=== PATIENT | female | born 1940 | race Caucasian/White ===

== ENCOUNTER 2017-05-06 09:14 | Inpatient (IN) | payer MEDICARE, OTHER ==
[~2017-05-06] VITALS: Ht 157.5 cm; Wt 72.1 kg
--- NOTE | ~2017-05-06 | DS ---
PATIENT'S NAME: LESLIE MARTINEZ [facility] AGE: 77 Y [address] ROOM: [id number] [place] [id number] [place] [facility] [place]: 05/06/2017 Discharge Summary DISCHARGE DATE: 05/25/2017 FAMILY PHYSICIAN: Ariel Pineda MD ATTENDING PHYSICIAN: Asif Mckee DISCHARGE DIAGNOSES: 1. Acute encephalopathy. 2. End-stage dementia with aggressive behaviors. 3. Gait instability secondary to medication side effects. 4. Chronic constipation. 5. Depression. 6. Left cheek abrasion. 7. Osteoarthritis. HOSPITAL COURSE: Please refer to admitting history and physical as dictated by Dr. Mckee. Briefly, the patient was admitted to [facility] with multiple mechanical falls and advanced dementia. Her falls were felt to be secondary to lorazepam side effect. She was placed on one-to-one observation. The delirium protocol was used. She was hydrated with normal saline. Her Ativan was discontinued. Wound Care did follow the patient for a left cheek abrasion. Bactroban was used until healed. Psychiatry was consulted for her agitated and psychotic behaviors. Ativan 1 mg 3 times daily and Haldol 2 mg p.r.n. were used. Her home Neurontin was discontinued. Urine culture showed no growth to date. Laboratory data was stable. She did gradually improve. She did have noted times of restlessness and agitation. Her chronic constipation was controlled with MiraLAX, milk of magnesia, and as needed Dulcolax suppository. Due to her advanced dementia, she did need care management assistance with working on fpc facility placement. Her acute encephalopathy secondary to medication side effects had resolved. On 05/25/2017, the patient was stable. [facility] was able to take the patient for placement, therefore, she was transferred on 05/25/2017. LABORATORY DATA: Sodium remained stable, potassium 3.6 to 4.1, BUN 12 to 22, creatinine 0.7 to 0.9, and magnesium 2.4, and GFR remained greater than 60. Hemoglobin 11.7 to 13.5, hematocrit 35.9 to 40.8, and platelets 191,000. UA; blood 10; wbc's rare; epithelial 0-2, and bacteria negative. WBC clumps few. Urine culture negative. IMAGING STUDIES: Radiology Reports: A CT scan of the head showed stable dilation of the ventricles, periventricular small-vessel ischemic changes. No acute cortical ischemia or hemorrhage. CT scan of the face showed no evidence of fracture or dislocation. Mucosal thickening. CT scan done of the cervical spine showed multi-level degenerative changes without fracture or dislocation. PATIENT'S NAME: LESLIE MARTINEZ [facility] AGE: 77 Y [address] ROOM: [place] [address] [place] [facility] [place]: 05/06/2017 Discharge Summary DISCHARGE DATE: 05/25/2017 FAMILY PHYSICIAN: Ariel Pineda MD ATTENDING PHYSICIAN: Asif Mckee X-ray of the right shoulder showed degenerative changes at the AC joint with no evidence of fracture or dislocation. DISCHARGE INSTRUCTIONS: 1. The patient will be discharged to [facility]. 2. Dr. Pineda to follow. 3. Diet: Regular. 4. Weightbearing as tolerated with fall precautions. 5. Rehabilitation potential is poor. 6. Discharge potential is poor. DISCHARGE MEDICATIONS: 1. Zyprexa 2.5 mg p.o. daily. 2. MiraLAX 17 g p.o. daily. 3. Senna 8.6 mg p.o. twice daily p.r.n. constipation. 4. Seroquel 75 mg p.o. t.i.d. 5. Tylenol 650 mg p.o. every 4 hours as needed for pain. 6. Maalox 30 mL p.o. every 4 hours as needed. 7. Dulcolax suppository 10 mg rectally daily p.r.n. 8. Ativan 0.5 mg p.o. q.8 hours as needed for dementia. 9. Milk of magnesia 30 mL p.o. daily p.r.n. constipation. 10. Aloe [place] apply to left heel 3 times daily for skin integrity. 11. Haldol 1 mg q.8 hours p.r.n., aggressive behaviors. 12. Ativan 0.5 mg 1 tablet p.o. q.4 hours p.r.n. aggressive behaviors. Thank you for allowing us to participate in the care of this patient. She has been hospitalized at [facility]. EBONY DARDEN APRN FOR MD SHEREEN ACHARYA/farhatl /[id number] d: 05/26/17 1332 t: 05/29/17 1653, DISCHARGE SUMMARY
--- NOTE | ~2017-05-06 | CON ---
PATIENT'S NAME: LESLIE MARTINEZ [facility] AGE: 77 Y [address] ROOM: [place] [address] [place] [facility] [place]: 05/06/2017 Consultation DISCHARGE DATE: FAMILY PHYSICIAN: AMADOU SOTELO MD ATTENDING PHYSICIAN: SEAN JENSEN DATE OF CONSULTATION: 05/08/2017 REFERRING PHYSICIAN: Mary Stiles M.D. REASON FOR CONSULT: Left facial cheek abrasion. HISTORY OF PRESENT ILLNESS: This is a 77-year-old female patient who is admitted to [facility] with advanced dementia and frequent falls. She currently resides at [facility]. Prior to admission, the patient has fallen multiple times. On admission she was found to have a left facial cheek abrasion. Per previous records, it is not clear how long the patient was lying on the ground. The patient is unable to report a history due to advanced dementia. PAST MEDICAL HISTORY: Advanced dementia and osteoarthritis. PAST SURGICAL HISTORY: D and C. FAMILY HISTORY: None listed. SOCIAL HISTORY: The patient currently resides at [facility]. She is a nonsmoker. ALLERGIES: PENICILLIN AND SULFAMETHOXAZOLE. CURRENT MEDICATIONS: Please refer to the medication administration record. REVIEW OF SYSTEMS: Unable to complete due to patient's advanced dementia. PHYSICAL EXAMINATION: PATIENT'S NAME: LESLIE MARTINEZ [facility] AGE: 77 Y [address] ROOM: [place] [address] [place] [facility] [place]: 05/06/2017 Consultation DISCHARGE DATE: FAMILY PHYSICIAN: AMADOU SOTELO MD ATTENDING PHYSICIAN: SEAN JENSEN VITAL SIGNS: Temperature 97.7, pulse 80, respirations 16, blood pressure 121/79, pulse oximetry 95% on room air. Height 5 feet 2 inches and weight 72.1 kg. GENERAL: The patient is alert. She is agitated. She did try to bite me as I was cleansing her face. HEENT: Obvious left facial cheek abrasion. Please see skin assessment for further details. NEUROLOGICAL: The patient does appear alert but unable to assess. She does not follow my commands. EXTREMITIES: Deferred. SKIN: To the patient's left facial cheek, she has an abrasion that is moist pink with centralized scabbing. I gently cleansed as the patient would allow. The patient was also noted to be picking at the site at times. Entire area measures 5.0 cm width x 5.0 cm length x 0.1 cm depth. Small bloody exudate noted. Periwound is erythemic. Area is not raised or hot to touch. LABORATORY DATA: Please see chart. ASSESSMENT AND PLAN: This is a 77-year-old female patient who was admitted to [facility] with advanced dementia and falls. 1. Left facial cheek abrasion secondary to fall. The patient is already on Bactroban. Increase to t.i.d. application. Erythema appears to be consistent with inflammatory response and not cellulitis or erysipelas. The patient would not allow further skin assessment. Previous records note that she does have redness to her left breast; however, the patient would not let me visualize and was swatting and trying to bite me when I did. I would like to thank Dr. Stiles for this consult. CHINEDU HAWK APRN FOR MD ONELIA ESCOBEDO/claus /[id number] d: 05/08/17 1404 t: 05/30/17 1544, CONSULTATION REPORT
--- NOTE | ~2017-05-06 | ER ---
PATIENT'S NAME: LESLIE MARTINEZ [facility] AGE: 77 Y [address] ROOM: [address] [address] [place] [facility] [place] DATE: 05/06/2017 ER/Outpatient Report DISCHARGE DATE: FAMILY PHYSICIAN: PHYSICIAN, UNKNOWN ATTENDING PHYSICIAN: SEAN JENSEN Time of Arrival: 0914 hours. Time of Evaluation: 0931 hours. IDENTIFICATION: A 77-year-old female. CHIEF COMPLAINT: Fall. HISTORY OF PRESENT ILLNESS: The patient is a 77-year-old female from [facility], who presents after a fall. The patient had an unwitnessed fall. One month ago, the patient moved from a fci in [place] to [facility]. Since that time, she has been aggressive for the last 2 weeks. She was taken to [place] last week to have her medications adjusted and brought home on . Yesterday, she fell 4 times, and this morning was found on the floor between the bed and the nightstand, unknown the time of the fall. The patient was awake, confused and aggressive, punching and hitting and biting at staff, but this behavior apparently is the patient's baseline according to the staff. There was some question of whether or not she had right shoulder pain. She was transferred here by ambulance. I could obtain no history from the patient, she was nonverbal for me. PAST MEDICAL HISTORY: Reviewed from records and with her daughters. ALLERGIES: RECORDS REFLECT THAT THE PATIENT HAS AN ALLERGY TO BACTRIM AND PENICILLIN. CURRENT MEDICATIONS: 1. Seroquel 75 mg t.i.d. 2. Aloe [place] to left hand t.i.d. 3. Zyprexa 2.5 mg daily. 4. Neurontin 200 mg t.i.d. 5. Tylenol 325 mg q.4 hours p.r.n. 6. Maalox 30 mL q.4 hours p.r.n. 7. Ativan 0.5 mg q.2 hours as needed for anxiety, and she did receive 3 doses yesterday as well as the day before. 8. Sennosides 1 tablet twice daily. PATIENT'S NAME: LESLIE MARTINEZ [facility] AGE: 77 Y [address] ROOM: [address] [place], [place] [address] [place] [facility] [place] DATE: 05/06/2017 ER/Outpatient Report DISCHARGE DATE: FAMILY PHYSICIAN: PHYSICIAN, UNKNOWN ATTENDING PHYSICIAN: SEAN JENSEN 9. Dulcolax suppository 10 mg p.r.n. 10. Milk of magnesia p.r.n. MEDICAL PROBLEMS: Dementia, anxiety, depression, and agitation. REVIEW OF SYSTEMS: Unable to obtain from the patient due to her dementia. Family had no additional review of systems. Their concern is the frequent falls and that she needs additional care. PHYSICAL EXAMINATION: VITAL SIGNS: Height 5 feet 3 inches and weight 71.4 kg. Blood pressure 138/91, pulse 86, respirations 18, temperature 98.4, and saturations 94% on room air. GENERAL: A 77-year-old female, in no acute distress. HEENT: Head: Normocephalic. She has erythema and abrasion over the left side of her face with some swelling of the eyelids. Eyes: Pupils equal and reactive to light and accommodation. Extraocular movements intact. Nose: Mucosa pink. No lesions. Mouth: No lesions. Pharynx benign. NECK: Supple. No lymphadenopathy. No apparent tenderness to palpation. No palpable deformities. LUNGS: Clear to auscultation. Breath sounds are equal. HEART: Regular rate and rhythm. No murmur, rub, or gallop. ABDOMEN: Bowel sounds present. Soft, nondistended, nontender. No tenderness to pelvic rock. EXTREMITIES: Lower extremities: No bony abnormalities. She moves all extremities. Upper extremities: She moves all extremities. NEURO: The patient will open her eyes to command. She does not follow any directions. She is not oriented. She has no focal deficit, however. SKIN: She has the erythema and abrasion on her cheek. She has erythema over her left anterior chest and breast. LABORATORY DATA AND X-RAYS: Lactate 2.0. Hemoglobin 12.4; hematocrit 38.2; platelets 217; white count 7.5, normal differential. Procalcitonin less than 0.05. Sodium 142, potassium 4.3, chloride 109, CO2 of 26, BUN 15, creatinine 0.8. Blood sugar 102. AST 63, ALT 19. Head CT, stable dilatation of the ventricles per Radiology. Facial bone CT negative. Cervical spine CT, multilevel degenerative changes. IMPRESSION: 1. Left facial abrasion. Wound care. 2. Dementia with increasing fall risk and frequent falls. 3. Aggressive behavior. PATIENT'S NAME: LESLIE MARTINEZ [facility] AGE: 77 Y [address] ROOM: [address] [address] [place] [facility] [place] DATE: 05/06/2017 ER/Outpatient Report DISCHARGE DATE: FAMILY PHYSICIAN: PHYSICIAN, UNKNOWN ATTENDING PHYSICIAN: SEAN JENSEN 4. Left chest wall abrasion/contusion. 5. Stable dilatation of the ventricles per head CT. Consider normal pressure hydrocephalus. PLAN: The patient will be admitted per Dr. Jensen for further evaluation, medication adjustment and to get Care Management involved for any possible placement needs. Family understands and agrees, and all questions have been answered. The patient remained in stable condition throughout her stay here in the emergency room. RG BOOTH MD CAR/modl /[id number] d: 05/06/17 1613 t: 05/12/172018, OUTPATIENT REPORT
--- NOTE | ~2017-05-06 | HP ---
PATIENT'S NAME: LESLIE MARTINEZ [facility] AGE: 77 Y [address] ROOM: [address] [place] [id number] [place] [facility] [place]: [place]/2017 History & Physical DISCHARGE DATE: FAMILY PHYSICIAN: PHYSICIAN, UNKNOWN ATTENDING PHYSICIAN: SEAN JENSEN DATE OF SERVICE: CHIEF COMPLAINT: Multiple mechanical falls after being given Ativan. HISTORY OF PRESENT ILLNESS: This is a 77-year-old, memory unit female, resident at [facility] who has advanced dementia. At baseline, patient can get restless and agitated, is easily forgetful, and also disoriented most of the time. The story is that because of her behavior of being aggressive from dementia, about 2 weeks ago, the patient was taken to [facility] for evaluation. Over there, blood work, everything was normal according to the patient's daughter and patient was discharged with Ativan 0.5 mg every 2 hours p.r.n. for agitation. Before that she was only taking 0.5 mg Ativan q.2 hours p.r.n. for agitation, but only up to three doses in 24 hours. Last Sunday when she was back at the [facility], the staff over there started giving her the Ativan 0.5 mg q.2 hours p.r.n. as ordered, and she has gotten 3 doses on this Sunday, which was 2 days ago and also three doses again yesterday, which was on Sunday. Yesterday, the patient has fallen multiple times, and today, the patient fell again when she was found lying on the ground, but alert. She was found to have a skin laceration on her left side of the face and erythema on her left cheek, and also left breast. It is not clear how long has the patient been on the ground, but the patient was found conscious. The patient denies hitting her head and also denies loss of consciousness. Because of the multiple falls after Ativan was given, patient was brought here for further evaluation. The patient's daughter also want the patient to be placed into a jail and does not want patient to go back to the [facility] given that they believe patient will require higher level of care due to her advanced dementia and at a very high fall risk. REVIEW OF SYSTEMS: As mentioned in the History of Present Illness. The patient denies any symptoms that I asked her on my examination. All other system were reviewed with the patient and were negative except for those mentioned in the History of Present Illness. The patient denies any pain. PAST MEDICAL HISTORY: Advanced dementia. PATIENT'S NAME: LESLIE MARTINEZ [facility] AGE: 77 Y [address] ROOM: [place] [address] [place] [facility] [place]: 05[place]2017 History & Physical DISCHARGE DATE: FAMILY PHYSICIAN: PHYSICIAN, UNKNOWN ATTENDING PHYSICIAN: SAEN JENSEN ALLERGIES: NO KNOWN DRUG ALLERGIES. HOME MEDICATIONS: Currently has been reconciled. SOCIAL HISTORY: The patient was never a smoker or drinker or drug user. PAST SURGICAL HISTORY: Status post lower back surgery. FAMILY HISTORY: Both parents from old age. The patient's daughter does not remember how her grandparents . PHYSICAL EXAMINATION: VITAL SIGNS: At the time of my dictation, temperature 97.6, blood pressure 136/84, respirations 14, saturation 98% on room air, and heart rate 77. GENERAL APPEARANCE: Alert, but disoriented to time, people, and place at the moment. The patient is not in distress, but she does try to get out of bed once in a while. HEENT: Pupils equally round and reactive to light. Extraocular muscles intact. Anicteric sclerae. Nasal turbinates are normal bilaterally. Moist oral mucosa. NECK: No JVD. CARDIOVASCULAR: Regular rate and rhythm. Normal S1 and S2. No murmurs, no rubs, no gallops. RESPIRATORY: Clear to auscultation. ABDOMEN: Soft, nontender, nondistended, bowel sounds present, no mass. EXTREMITIES: No edema in upper or lower extremities. SKIN: She has a skin laceration on the left side of the face and also erythema on the left side of the face, and also on the left breast. The erythema is nontender, is not hot, and also is not raised. NEUROLOGICAL: Cannot perform a full neurological exam given that patient does not really follow all the commands due to her dementia. However, no slurred speech. No facial droop. LABORATORY DATA: Lactic acid 2.0. White blood cells 7.5, hemoglobin 12.4, hematocrit 38.2, and platelets 217,000. Glucose 102, BUN 15, creatinine 0.8, sodium 142, potassium 4.3, chloride 109, CO2 of 26, calcium 8.8, total protein 7.3, albumin 3.6, AST 63, ALT 19, alkaline phosphatase 78, total bilirubin 0.5, anion gap 11.3, and GFR more than 60. Procalcitonin is less than 0.05. PATIENT'S NAME: LESLIE MARTINEZ [facility] AGE: 77 Y [address] ROOM: [address] [address] [place] [facility] [place]: 05/06/2017 History & Physical DISCHARGE DATE: FAMILY PHYSICIAN: PHYSICIAN, UNKNOWN ATTENDING PHYSICIAN: SEAN JENSEN IMAGING STUDIES: 1. CT of the cervical spine without contrast on admission showed multilevel degenerative changes with no evidence of a fracture or dislocation. 2. CT of the facial bone without contrast on admission showed no evidence of a fracture or dislocation. Mucosal thickening involving the right sphenoid sinus. 3. CT of the brain without contrast on admission shows stable dilatation of the ventricles raising the question of normal pressure hydrocephalus. This is chronic and unchanged. Periventricular small-vessel ischemic changes. No acute cortical ischemia or hemorrhage. 4. X-ray of the right shoulder showed degenerative changes at the acromioclavicular joint with no evidence of a fracture or dislocation. ASSESSMENT AND PLAN: 1. Regarding her multiple falls secondary to lorazepam use: We will avoid lorazepam given that this medication can cause very high fall risk in elderly population. For her dementia with psychotic features, I will use the antipsychotics, use the Seroquel p.r.n., Zyprexa prn, and Haldol prn if needed as part of delirium orders. The patient will be on fall precaution and aspiration precaution. If necessary, the patient's daughter gave me permission to use soft restraints on both wrists in case the patient becomes a danger to herself or tried to harm others or to herself. I have already spoken to the daughter and both daughters agreed and wanted us to use restraints if it is necessary for her safety and others. The patient's daughter, her name is Tabitha and she wants the patient to be placed into a jail after she is discharged from here. They do not want to take the patient back to the [facility] given that they believe patient will require higher level of care due to her high risk of falls and advanced dementia. For this reason, I will consult test case developer for placement. Further plan will depend on clinical course. 2. Regarding her skin laceration on the left cheek: It is nontender and is not raised. I do not think this is erysipelas. The erythema likely is from lying on the ground for unknown amount of time, therefore, I will check her CPK to make sure she does not have any evidence of rhabdomyolysis. Further plan will depend on clinical course. 3. Regarding her code status: She is DNR/DNI. 4. The legal guardian is her daughter. Her name is Tabitha. Phone number is [phone]. 5. Further plan will depend on clinical course. PATIENT'S NAME: LESLIE MARTINEZ [facility] AGE: 77 Y [address] ROOM: [place] [address] [place] [facility] [place]: 05/06/2017 History & Physical DISCHARGE DATE: FAMILY PHYSICIAN: PHYSICIAN, UNKNOWN ATTENDING PHYSICIAN: SEAN JENSEN MD CC/modl /[id number] D: 458 T: 822 HISTORY & PHYSICAL
--- NOTE | ~2017-05-06 | CON ---
PATIENT'S NAME: AMAIRANI MARTINEZ [facility] AGE: 77 Y [address] ROOM: [place] [address] LOCATION: [facility] ADMIT DATE: 05/06/2017 Consultation DISCHARGE DATE: FAMILY PHYSICIAN: AMADOU SOTELO MD ATTENDING PHYSICIAN: SEAN JENSEN DATE OF CONSULTATION: 05/08/2017 IDENTIFYING DATA: Amairani is a 77-year-old, , she is an [place] female, who is a resident in assisted living facility in the dementia unit here in [facility], admitted for increasing falls. Consultation requested for increased aggression. The patient seen one-to-one in her room today. Information obtained from the nursing staff as well and from the collateral records. More than 50% of time spent in counseling and coordination of care. HISTORY OF PRESENT ILLNESS: As per the information available, the patient was having increasing falls, having increasing agitation, being more aggressive, and at that time she was transferred over to the medical floor here at [facility]. Since the patient has been here, she has been very confused and disorganized, hitting, kicking, scratching, and being extremely rude and mean towards the staff. She has to be on one-to-one, so that she does not walk out or does not fall. The patient absolutely makes no sense in her conversations and has difficulty understanding the questions and most of her answers are not related to the questions you ask her. No reports of any suicidal or homicidal ideations. No reports of any struggles with moods. No reports of any problem with anxiety. PAST PSYCHIATRIC HISTORY: The patient has been diagnosed with dementia over the last 4 to 5 years, has been gradually declining, and is in assisted living facility now. MEDICAL AND SURGICAL HISTORY: Overall is relatively healthy. No chronic health issues. Concerns about her having UTI though. Recent falls as well. DRUG AND ALCOHOL HISTORY: None relevant. FAMILY HISTORY: No psychiatric history available from the family. PERSONAL AND SOCIAL HISTORY: The patient is . She is living in an assisted living facility here in PATIENT'S NAME: AMAIRANI MARTINEZ [facility] AGE: 77 Y [address] ROOM: [place] [address] LOCATION: [facility] ADMIT DATE: 05/06/2017 Consultation DISCHARGE DATE: FAMILY PHYSICIAN: AMADOU SOTELO MD ATTENDING PHYSICIAN: SEAN JENSEN. MENTAL STATUS EXAM: The patient is alert and awake. She is not oriented to place or person. She is not cooperative with fair hygiene. Fair grooming. Appropriately dressed. Good eye contact. Psychomotor retardation. No rigidity or tremor. Affect is of decreased range, normal intensity, it is related and appropriate. Could not describe the mood. Thought process is disorganized. No suicidal or homicidal ideation. No psychosis. Poor insight. Poor judgment. Struggling with memory and concentration. ASSESSMENT: 1. Neurocognitive disorder with behavioral disturbance. 2. Rule out delirium secondary to possible urinary tract infection, recent falls. PLAN: At this time, I would recommend that we use some Ativan 1 mg 3 times a day IV to help with aggression and agitation and to address the symptoms, which might be related to her dementia and possibly delirium as well. She is on one-to- one that will cover the risk of any falls. It can be switched over to oral dose once she is able to take oral medication. Also start Haldol 1 mg q.6 hours IV p.r.n. for psychosis and we can reinitiate the home medications once she is able to take them orally. Use behavioral intervention for the safety of the patient and the staff. Follow up will be as needed by the Psychiatry Service. Thanks for this referral. MD RAH ROBLERO/claus /[id number] d: 05/08/17 2130 t: 05/09/17 1349, CONSULTATION REPORT
[2017-05-06 10:14] LABS: BASOPHIL % 0.4 %; EOSINOPHIL # 0.1 K/uL (0.0-0.5); EOSINOPHIL % 0.9 %; HEMATOCRIT 38.2 % (33.0-46.0); HEMOGLOBIN 12.4 g/dL (10.0-15.0); IMMATURE GRANULOCYTE % 0.3 %; LYMPHOCYTE # 1.2 K/uL (0.8-4.0); LYMPHOCYTE % 16.3 %; MCH 30.9 pg (27.0-34.0); MCHC 32.5 gm/dL (32.0-36.5); MCV 95.3 fl (83.0-98.0); MONOCYTE # 0.6 K/uL (0.0-1.0); MONOCYTE % 8.1 %; MPV 10.9 fl (9.4-12.4); NEUTROPHIL # (ANC) 5.6 K/uL (1.8-7.8); NRBC % 0 /100WBC (0-0.00); PLATELET COUNT 217 K/uL (150-450); RBC 4.01 M/uL (3.50-5.50); RDW-CV 13.4 % (11.9-14.6); WBC 7.5 K/uL (4.0-11.0)
[2017-05-06 10:37] LABS: ALBUMIN 3.6 gm/dL (3.5-5.0); ALK PHOS 78 IU/L (33-138); ALT 19 IU/L (12-78); ANION GAP 11.3 (10.0-19.0); AST 63 IU/L (10-40); BLOOD UREA NITROGEN 15 mg/dL (6-24); CALCIUM 8.8 mg/dL (8.5-10.5); CHLORIDE 109 mMol/L (96-110); CO2 26 mMol/L (22-32); CREATININE 0.8 mg/dL (0.5-1.1); ESTIMATED GFR (MDRD EQUATION) > 60; POTASSIUM 4.3 mMol/L (3.7-5.1); SODIUM 142 mMol/L (135-145); TOTAL BILIRUBIN 0.5 mg/dL (0.0-1.5); TOTAL PROTEIN 7.3 g/dL (6.0-8.4)
--- NOTE | 2017-05-06 18:30 | NUR ---
ADMISSION NOTE/SHIFT SUMMARY Significant Event: Patient admitted through emergency room from [facility]. Patient recently admitted there for advanced dementia. Patient's daughters accompanied patient to E.R. but once patient sent to floor, daughters went home. Patient just prior to coming up to floor agitated that daughters left and confused--trying to get off the cart and then once transferred to bed was trying to get out of bed. Staff trying to explain need to stay in bed but unsuccessful. Patient trying to hit, spit, bite, scratch, and kick. Behavior not improving despite attempts to redirect patient, have staff sit with patient, family unavailable and patient not able to be safe when up as she fell several times yesterday and once during the night. Dr. Mckee called and restraint order obtained at 1330 along with order for haldol 5 mg IM times one now for agitation. Restraints applied at 1345 and haldol given at 1405. Patient did calm down eventually after restraints and haldol but can still get agitated at times. Patient also trying to take out her IV. IV is currently noted to patient's right hand and covered with coban to protect it. Patient did eat some lunch but when she was done patient then spit last bite of mashed potatoes out at nurse. Patient has been incontinent times one and did have a BM after arrival to floor. Patient is also a 1:1 observation status. Follow up: Continue to monitor.
[2017-05-06] MEDS ORDERED: SEROQUEL25 MG PO (20:08)
[2017-05-06] MEDS ORDERED: ZYPREXA2.5 MG PO (20:10)
[2017-05-06] MEDS ORDERED: NEURONTIN100 MG PO (20:10)
[2017-05-06] MEDS ORDERED: TYLENOL325 MG PO (20:13)
[2017-05-06] MEDS ORDERED: MAALOX LIQ UNIT30 ML PO (20:14)
[2017-05-06] MEDS ORDERED: ATIVAN 0.5MG0.5 MG PO (20:16)
[2017-05-06] MEDS ORDERED: MILK OF MA400 MG/5 M PO (20:17)
[2017-05-06] MEDS ORDERED: DULCOLAX10 MG R (20:17)
[2017-05-06] MEDS ORDERED: SENOKOT8.6 MG PO (20:18)
[2017-05-06] MEDS ORDERED: ALOE VESTA141 GM TOP (20:25)
[2017-05-06] MEDS ORDERED: ALOE VESTA TOP (20:28)
--- NOTE | 2017-05-07 08:40 | NUR ---
Pt. oriented to self. Advanced dementia with psychotic features. Restraints removed at 0100. Pt. given prior to shift change and has been resting all shift. Inc. x1. Restarted IV in L) forearm with fluids at 100ml. RA. VSS. 1:1 supervision. Regular diet. 1 assist. Home med list needs addressed.
--- NOTE | 2017-05-07 11:30 | NUR ---
Called patient's daughter/guardian, Nandini #[phone]. She reports patient has only been at [facility] a week or two. She went there and then to [facility] for med adjustments. Was at [facility] for 2 weeks and just got back to [place] on 05/03. Patient was originally at the [facility] but they moved her to [place] to be closer to her . Patient has also been at [facility] at some point but go out unattended. Will need a locked unit. Only one in [place] is [facility]. 2nd choice is [facility]. 1200 Lyla from [facility] called. They can not accept back, needs higher level of care. I requested medical records from [facility]. She faxed me the records.
--- NOTE | 2017-05-07 14:53 | NUR ---
A-SCREENED D/T (+)MST; NPFE DEFERRED ADVANCED DEMENTIA. RESTRAINTS REMOVED EARLY THIS AM. NO HT OR WT OBTAINED; CALLED RN AND THEY WILL GET BOTH. ESTIMATED HT AT 62 IN. LABS: NA 142, K+ 4.3, GLU 102, BUN 15, INTEGRATION ARCHITECT 0.8, ALB 3.6 MEDS: SEROQUEL, ZYPREXA, HALDOL DIET RX: REGULAR. PO INTAKE BITES-25% NUTR. NEEDS FIGURED BASED ON EST HT AND IBW: 9491-6011 KCALS (25-30 KCALS/KG IBW) AND 50-55 GM PROTEIN (1.0-1.1 GM/KG IBW). D-AT NUTRITION RISK W/INADEQUATE ORAL INTAKE R/T ALTERED MENTAL STATUS AEB INTAKE RECORDS, AND CHART REVIEW I-START ENSURE ENLIVE BID TO PROVIDE ADDITIONAL NUTRIENTS M/E-GOAL: PO INTAKE >/=50% BY DISCHARGE 1)F/U WITH WT AND HT IN 1 DAY; ADJUST EST NUTR NEEDS IF NEEDED 2)WILL ASSIST NEEDED
--- NOTE | 2017-05-07 17:34 | NUR ---
Significant Event: PT ALERT, DISORIENTED TO TIME, PLACE, PERSONS. REMAINS IN 1:1 OBSERVATION. VERY IMPULSIVE, ULTRA HIGH FALL RISK. IV WENT BAD AND HAD TO START A NEW IV TO R FA. PT WAS VERY COMBATIVE FOR REMOVAL AND RESTART. WILL HIT, KICK, AND BITE. IS VERY CONTENT TO JUST AMBULATE IN HALLS WITH CATERING TRUCK DRIVER. DAUGHTER HAS CALLED TO CHECK IN ON A COUPLE TIMES THIS SHIFT. CM WILL START LOOKING FOR PLACEMENT. PT HAS TAKEN IN SMALL AMOUNTS OF PO, SEEMS TO DO BETTER WITH SOFTER FOODS. DNR/DNI ORDER OBTAINED. Follow up: 1:1, CONTINUE TO MONITOR, NEED UA
--- NOTE | 2017-05-08 04:34 | NUR ---
Pt. oriented to self. Advanced dementia. RA. VSS. 1:1 sitter. Regular diet - soft foods. Helped feed with meals. IV in R) arm with fluids. Pills crushed in applesauce. Incontinence. Slept well through shift.
[2017-05-08 05:03] LABS: BASOPHIL % 0.4 %; EOSINOPHIL # 0.2 K/uL (0.0-0.5); EOSINOPHIL % 4.6 %; HEMATOCRIT 35.9 % (33.0-46.0); HEMOGLOBIN 11.7 g/dL (10.0-15.0); IMMATURE GRANULOCYTE % 0.2 %; LYMPHOCYTE # 1.5 K/uL (0.8-4.0); LYMPHOCYTE % 32.7 %; MCH 30.9 pg (27.0-34.0); MCHC 32.6 gm/dL (32.0-36.5); MCV 94.7 fl (83.0-98.0); MONOCYTE # 0.5 K/uL (0.0-1.0); MONOCYTE % 10.4 %; MPV 10.5 fl (9.4-12.4); NEUTROPHIL # (ANC) 2.3 K/uL (1.8-7.8); NEUTROPHIL % 51.7 %; NRBC % 0 /100WBC (0-0.00); RBC 3.79 M/uL (3.50-5.50); RDW-CV 13.4 % (11.9-14.6); WBC 4.5 K/uL (4.0-11.0)
[2017-05-08 05:11] LABS: PLATELET COUNT 172 K/uL (150-450)
[2017-05-08 05:32] LABS: ANION GAP 8.6 (10.0-19.0); BLOOD UREA NITROGEN 12 mg/dL (6-24); CALCIUM 8.4 mg/dL (8.5-10.5); CHLORIDE 112 mMol/L (96-110); CO2 25 mMol/L (22-32); CREATININE 0.7 mg/dL (0.5-1.1); ESTIMATED GFR (MDRD EQUATION) > 60; MAGNESIUM 2.4 mg/dL (1.8-2.6); PHOSPHORUS 2.3 mg/dL (2.5-4.9); POTASSIUM 3.6 mMol/L (3.7-5.1); SODIUM 142 mMol/L (135-145)
[2017-05-08 05:44] LABS: CPK 1483 IU/L (21-215)
[2017-05-08 14:05] LABS: BILIRUBIN URINE NEGATIVE (NEGATIVE); BLOOD URINE 50 /UL (NEGATIVE); COLOR URINE STRAW (YELLOW); GLUCOSE URINE NEGATIVE (NEGATIVE); KETONE URINE NEGATIVE (NEGATIVE); LEUKOCYTES URINE 500 /UL (NEGATIVE); NITRITE URINE NEGATIVE (NEGATIVE); PROTEIN URINE NEGATIVE (NEGATIVE); TURBIDITY URINE 2+ (CLEAR); UROBILINOGEN URINE NORMAL (NORMAL)
[2017-05-08 14:13] LABS: BACTERIA URINE MANY (NEGATIVE); WBC CLUMPS URINE FEW (NEGATIVE); WBC URINE 20-50 #/HPF (NEGATIVE)
--- NOTE | 2017-05-08 16:11 | NUR ---
A - NUTRITION FOLLOW-UP IMPULSIVE, PSY CONSULT TODAY 05/08. ADVANCED DEMENTIA. OBTAINED PT'S HT AND WT. HT: 62 INCHES, WT: 158# LABS: K+ 3.6, ALB 3, PO4 2.3. NEW MEDS: ZYPREXA. PT IS ON SEROQUEL, HALDOL DIET: FINGER FOOD SOFT 05/08 W/ ENSURE ENLIVE BID. INTAKE SIPS/BITES-25%. NEEDS HELP W/ MEALS. PER RN, PT WILL DRINK ENSURE ENLIVE IF NOT STARTING TO BITE RN. EST NEEDS: 5251-1757 KCAL, 50-60 GRAMS PROTEIN (1-1.2 GRAMS/KG IBW), FLUID NEEDS: 1ML/KCAL D - INADEQUATE ORAL INTAKE RELATED TO ALTERED MENTAL STATUS EVIDENCED BY PO SIPS/BITES-25%. I - CONTINUE W/ ENSURE ENLIVE BID. M/E - GOAL: PT WILL BE ABLE TO TOLERATE >50% OF MEALS AND AT LEAST ONE ORAL SUPPLEMENT PER DAY IN 3-5 DAYS.
--- NOTE | 2017-05-08 17:17 | NUR ---
Significant Event: PT ALERT AND DISORIENTED. VSS ON RA, AFEBRILE. PT PULLED IV OUT, NEW RESTARTED TO L FA. VERY AGITATED THIS AM, HITTING AT STAFF. PRN HALDOL 1MG GAVE, PT RESTED AFTER THAT. REFUSED AM PO MEDS, TRIED TO GIVE IN APPLESAUCE AND SPIT OUT. PT BECAME VERY AGITATED AGAIN THIS AFTERNOON, VERY ABUSIVE TO CLIENT TECHNOLOGIES ANALYST IN ROOM. ORDER OBTAINED FOR IM HALDOL 5MG X1, PT CALMED SOME AFTER. STRAIGHT CATH FOR UA AND NEW IV PLACED AT THAT TIME. PT WAS STILL AGITATED AND HITTING/KICKING ON REASSESSMENT, SO 1MG HALDOL GAVE AGAIN PER PRN ORDERS. PSYCH CONSULT OBTAINED AND EVAL COMPLETED. STARTED ON PO/IV ATIVAN, PRN HALDOL. REMAINS IN 1:1 OBSERVATION. CLIENT TECHNOLOGIES ANALYST'S ROTATED THROUGH SHIFT. SHOWERED THIS AFTERNOON. WAS UP TO VISIT THIS AM BRIEFLY. DAUGHTER CALLED TO CHECK IN. CM WORKING ON PLACEMENT. Follow up: 1:1 OBSERVATION, NEW MEDICATIONS
--- NOTE | 2017-05-09 04:51 | NUR ---
Pt. oriented to self. RA. VSS. Slept all of shift. Took HS pills with a milkshake. Remains in 1:1 with sitter. IV in R) arm with fluids. Incontinent x1.
--- NOTE | 2017-05-09 11:50 | NUR ---
Called back patients Guardian/Daughter Nandini Christopher borrero a message: Not made any referrals yet due to continued behaviors which need to be stabilized before patient will be ready to go. Also can not require 1:1 supervision.
--- NOTE | 2017-05-09 16:51 | NUR ---
Significant Event: PT RESTING WELL THIS AM, TOOK MEDS CRUSHED IN A "MILK SHAKE" OF ENSURE AND ICE CREAM. MORE ALERT THIS AFTERNOON, AMBULATING IN HALLS WITH BATCH ROLLER OPERATOR, VERY RESTLESS AND CHANGES POSITIONS OFTEN. COOPERATIVE FOR THE MOST PART, OCCASSIONALLY BECOMES IRRITATED WHEN UNABLE TO DO TASK SHE WANTS TO BUT HAS BEEN EASY TO REDIRECT, NOT PHYSICALLY AGGRESSIVE TOWARD STAFF THIS SHIFT. 2 LRG INC VOIDS, IVF CONTINUE TO RUN. PT ATE MINIMAL FOR BREAKFAST, BUT ATE 50% FOR LUNCH. WAS UP TO VISIT THIS AM AND WAS AGITATED WITH BATCH ROLLER OPERATOR IN ROOM THAT SHE WAS NOT SERVING HIM. HE LEFT ANGRY. DAUGHTER, ALON, CALLED TO CHECK IN. Follow up: 1:1 SITTER, MONITOR AGITATION, CM WORKING ON PLACEMENT
--- NOTE | 2017-05-10 04:45 | NUR ---
Significant Event: PATIENT REMAINS 1 : 1 SITTER. RESTLESS BEGINNING OF SHIFT, AMBULATED IN HALLWAY WITH GAITBELT, NURSE AND FAMILY MENBER ASSISTED. GAIT UNSTEADY. AMBULATED TO BR WITH GAITBELT AND 2 ASSIST, VOIDED AND HAD A LARGE BM. WAS INCONTINENCE OF STOOL AND URINE PRIOR GOING TO BR. SAT UP IN RECLINER CHAIR 45 MINUTES. RETURN TO BED AT 2030. TAKEN HS MEDS SEROQUOL 75MG AND ATIVAN 0.5MG PO MEDS CRUSHED AND GIVEN WITH A MILKSHAKE. IV NORMAL SALINE 9% INFUSING IN LEFT ANTERIOR FOREARM AT 70ML/HR. TUBING CHANGED DONE. OCCASIONALLY IRRITATED BUT REDIRECTS. LEFT CHEEK ABRASION, SMALL ABRASION,REDNESS TO LEFT FOREHEAD HOLINESS AREA. PATIENT SLEPT ALL SHIFT. BEEN REPOSITIONED. Follow up:
--- NOTE | 2017-05-10 19:30 | NUR ---
Significant Event: Alert to self only. 1:1 sitter. Room air. SBP 154, 169. HR 70, 80. Up with 2 assist, unsteady. Takes medication crushed in an ice cream and ensure malt. Incontinent of urine and bowel. Follow up:
[2017-05-10 23:03] LABS: BILIRUBIN URINE NEGATIVE (NEGATIVE); BLOOD URINE 10 /UL (NEGATIVE); COLOR URINE YELLOW (YELLOW); GLUCOSE URINE NEGATIVE (NEGATIVE); KETONE URINE NEGATIVE (NEGATIVE); LEUKOCYTES URINE NEGATIVE /UL (NEGATIVE); NITRITE URINE NEGATIVE (NEGATIVE); PROTEIN URINE NEGATIVE (NEGATIVE); TURBIDITY URINE CLEAR (CLEAR); UROBILINOGEN URINE NORMAL (NORMAL)
[2017-05-10 23:11] LABS: BACTERIA URINE NEGATIVE (NEGATIVE); EPITHELIAL URINE 0-2 #/HPF (NEGATIVE); WBC URINE RARE #/HPF (NEGATIVE)
--- NOTE | 2017-05-11 04:11 | NUR ---
Shift Summary: Patient is forgetful and impulsive. Does hit and kick if aggitated. Incontinent of urine and charting states of BM also. No C/O of pain. Ambulates with 1-2 assist. Waiting for placement.
--- NOTE | 2017-05-11 10:30 | NUR ---
A - NUTRITION F/U. DISORIENTED X 3. NO LABS. PT W/ 1+ BLE EDEMA. DIET: FINGER FOOD SOFT DIET, ASSIST W/ MEALS. ENSURE BID. INTAKE VARIES 0-50%. AWAITING PLACEMENT. D - INADEQUATE ORAL INTAKE R/T DECREASED APPETITE AEB INTAKE RECORD. I - GOAL: 50% OR BETTER INTAKE BY DISMISSAL. M/E - CONT TO ENCOURAGE ORAL INTAKE. F/U IN 2-4 DAYS.
--- NOTE | 2017-05-11 16:45 | NUR ---
Significant Event:Is alert but disoriented x3.IV in Lt.arm.Abrasion/bruise Lt.cheek.Abrasion Lt.forehead.starting to scab Lt.cheek one.Is amb w/1 assist.Remains being a 1:1.Has slept at intervals.Takes meds crushed & put in ensure or ice cream or something. Follow up:
--- NOTE | 2017-05-12 06:06 | NUR ---
SIGNIFICANT EVENT: Pt alert early in shift, slept well since HS. Disoriented x3. Incontinent of Lg urine x2, no BM this shift. PIV to L) arm infusing. 1PA to ambulate. Regular diet. 1:1 sitter. Has been cooperative with cares this shift.
--- NOTE | 2017-05-12 15:47 | NUR ---
Significant Event: Pt denies pain. Sleepy this am. Confused and combative at times. Continues on 1:1 supervision for pt safety. Up with 1-2 assist. Inc of urine. Poor appetite. Saline lock'd IV. Picks at scab on left cheek. Follow up:
--- NOTE | 2017-05-13 05:26 | NUR ---
Significant Event: ALERT NOT ORIENTATED BED REST DNR. TWO PERSON ASSIST TO DO CARES. PATIENT IS EASILY AGITATED AND BECOMES COMBATIVE. VSS WNL ON RA. PILLS ARE CRUSHED AND GIVEN IN APPLE SAUCE OR FLUIDS. IV L ARM SL. 1:1. Follow up:
--- NOTE | 2017-05-13 16:12 | NUR ---
Significant Event: Pt denies pain. Continues on 1:1 supervision for pt safety. Up with 1-2 assist. Inc urine. Confused but more cooperative today then yesterday. Poor appetite. Did put pt on a mechanical soft diet as she does not have her dentures here. Follow up:
[2017-05-14 04:52] LABS: BASOPHIL % 0.6 %; EOSINOPHIL # 0.3 K/uL (0.0-0.5); HEMATOCRIT 40.8 % (33.0-46.0); HEMOGLOBIN 13.5 g/dL (10.0-15.0); IMMATURE GRANULOCYTE % 0.2 %; LYMPHOCYTE # 1.5 K/uL (0.8-4.0); LYMPHOCYTE % 27.3 %; MCH 30.7 pg (27.0-34.0); MCHC 33.1 gm/dL (32.0-36.5); MCV 92.7 fl (83.0-98.0); MONOCYTE # 0.6 K/uL (0.0-1.0); MONOCYTE % 10.6 %; MPV 10.9 fl (9.4-12.4); NEUTROPHIL % 56.3 %; NRBC % 0 /100WBC (0-0.00); PLATELET COUNT 191 K/uL (150-450); RDW-CV 13.3 % (11.9-14.6); WBC 5.4 K/uL (4.0-11.0)
[2017-05-14 05:10] LABS: ALBUMIN 3.3 gm/dL (3.5-5.0); ANION GAP 10.2 (10.0-19.0); CALCIUM 9.2 mg/dL (8.5-10.5); CREATININE 0.9 mg/dL (0.5-1.1); MAGNESIUM 2.4 mg/dL (1.8-2.6); PHOSPHORUS 3.3 mg/dL (2.5-4.9); POTASSIUM 4.2 mMol/L (3.7-5.1)
--- NOTE | 2017-05-14 07:34 | NUR ---
Significant Event: ALERT, DISORIENTED. CONTINUES 1:1 OBSERVATION FOR SAFETY. UP WITH 1-2 ASSIST. CAN BE AGITATED AT TIMES BUT FAIRLY COOPERATIVE WITH STAFF. TOOK MEDS CRUSHED IN ENSURE. INCONTINENT OF URINE. IV SALINE LOCKED. SLEPT WELL THROUGH NIGHT. Follow up:
--- NOTE | 2017-05-14 11:10 | NUR ---
Spoke to FRANNIE Gregory following patient and she feels patient is close to being ready for discharge. Staff is staring to wean her from 1:1 with starting 15 mins checks on her. I placed a call to [facility] at 1100 and left Shanique a message to see if they have any beds available in their memory care unit. Patient will need to be in a locked unit per RACHEL Gomez's notes. Will notifiy Sanna Cook CM following today of referral made to [facility].
--- NOTE | 2017-05-14 12:27 | NUR ---
A-NUTRITION F/U 1:1 FOR SAFETY. TAKES PILLS CRUSHED IN ENSURE OR ICE CREAM. NO BM SINCE 05/10; MIRALAX ORDERED. WAITING FOR PLACEMENT LABS REVIEWED: ALB 3.3 MEDS: ATIVAN DIET RX: MECHANICAL SOFT DIET W/ENSURE BID. PO INTAKE DECLINED SINCE LAST F/U TO SIPS/BITES-25%. EST NUTR NEEDS: 8747-4188 KCALS AND 50-60 GM PROTEIN D-AT NUTRITION RISK W/INADEQUATE ORAL INTAKE R/T ALTERED MENTAL STATUS AEB ADVANCED DEMENTIA DX, INTAKE RECORDS, CHART REVIEW, NEED FOR 1:1 I-1)ADD MAGIC CUP BID 2)PT IS UNABLE TO MEET NUTR. NEEDS WITH PO INTAKE, IF ENTERAL NUTRITION IS DESIRED, PLEASE CONSULT. M/E-GOAL: PO INTAKE >/=50% BY DISCHARGE 1)F/U PO INTAKE, SUPPLMENT, AND POC IN 3-5 DAYS 2)ASSIST NEEDED
--- NOTE | 2017-05-14 17:11 | NUR ---
Significant Event: PATIENT ALERT, CONFUSED, COOPERATIVE AT TIMES. STARTED ON 15 MINUTE CHECKS THIS SHIFT. NO S/S OF PAIN. AMBULATES TO BATHROOM AND UP TO CHAIR FOR SHORT PERIOD OF TIMES, WITH 2 ASSIST, USE OF GAIT BELT. INCONTINENT OF URINE. ASSISTED WITH MEALS, BITES TAKEN. TAKING FLUIDS WELL. 1:1 DISCONTINUED. Follow up:
--- NOTE | 2017-05-15 03:33 | NUR ---
Significant Event:pt alert, is no longer a 1:1, however continues to be 15min checks. pt did have great night. rested well and no prn medicaiton needed. incontient of bladderx3. pt takes medication crushed in pudding with no comlicaitons noted. is able to follwo simple commands when given. bed alarm in place at all times due to confusion.vss no bowel movement during shift. Follow up:
--- NOTE | 2017-05-15 16:11 | NUR ---
Significant event: Confused. On 15 minute checks. Ambulated in [place]ren with one assist. Has eaten ice cream today refused meals. Drinking poor, 1 large incontinent void and had BM.
--- NOTE | 2017-05-16 04:14 | NUR ---
Significant Event: Disoriented x3, confused. Not 1:1, has 15 minute checks. Rested well from 2200 on. No PRN meds. Meds crushed in ice cream. Bed alarm on at all times. 1 large incontinence urine, 1 small incontinence urine, 1 small incontinence stool. VSS. Wears brief at all times. Saline lock left posterior forearm, wrapped with coban. Abrasions to left cheek and left forehead, scheduled ointment applied. Follow up:
--- NOTE | 2017-05-16 04:19 | NUR ---
Alert, but disoriented x3.
--- NOTE | 2017-05-16 05:43 | NUR ---
1 small incontince urine to day shift credit at 0540. Boosted in bed.
--- NOTE | 2017-05-16 10:00 | NUR ---
Dr Stiles let me know patient was ready for discharge. 1140 Called Amy in [place] but admission person was in a meeting, faxed referral. 1400 Gloria called back and left a message that [facility]'s dementia unit was full and they had a waiting list. 1420 Called patients daughter/guardian Nandini #[phone] to update. She is fine with me casting a wider net for placement with [facility], in hopes for [facility]. 1430 Called [facility] and spoke to Connie. Send fax with attention to Donna. Faxed referral. 1540 Updated Dominga Lunsford and patients nurse Victoria. 1520 Called back patients daughter Daljit #[phone]. She wondered about moving mom to the [place] she works in. We talked that thru and what would be needed. Let her know I could send a referral but would need to hear that from Nandini.
--- NOTE | 2017-05-16 16:52 | NUR ---
Oriented to self. Crushed meds, water, syringe on doughnut this a.m. then put in mouth this afternoon. Tolerating small amounts of soft diet. Poor oral intake. Incontinent of bladder. IV s/l'd to LFA. VSS, afebrile, on RA. No PRN meds given. Ambulated in hallways w/SBA x2 today. Up to chair and sat at BS. CM working on placement.
--- NOTE | 2017-05-17 03:46 | NUR ---
Pt. oriented to self. VSS. RA. 2 assist with changing. 1 assist with walking. Pills given with milkshake. Good oral intake this shift. Slept well through the shift. Incontinent of stool and urine. Changed 3x. IV saline locked. Working on placement.
--- NOTE | 2017-05-17 11:55 | NUR ---
Called Donna at [facility] Admission line. She stated Vanda was going to be doing a face to face visit and should be out today. 1210 Updated Dominga Lunsford and charge nurse
--- NOTE | 2017-05-17 15:07 | NUR ---
A - NUTRITION FOLLOW-UP DEMENTIA. PER RECORD, WT STABLE SINCE 05/07? WAITING FOR PLACEMENT. 1:1 DISCONTINUED. LABS: ALB 3.3 MEDS: ON HALDOL, SEROQUEL. DIET: MECH SOFT W/ ENSURE ENLIVE BID; MAGIC CUP BID. INTAKE BITES-25%, TAKES ORAL SUPPLEMENT 50% X1 NOTED. NEEDS HELP W/ MEALS. VISITED PT THIS AFTERNOON, CONFUSED. PER INFRASTRUCTURE MANAGER, PT LIKES STRAWBERRY ENSURE ENLIVE. PATIENT LIKES ICE-CREAM WELL. ENCOURAGED PO INTAKE. EST NEEDS: [id number] KCAL, 50-60 GRAMS PROTEIN, FLUID NEEDS: 1ML/KCAL D - INADEQUATE ORAL INTAKE RELATED TO DECREASED APPETITE SECONDARY TO ALTERED MENTAL STATUS EVIDENCED BY PO BITES-25%. I - CONTINUE WITH ENSURE ENLIVE BID; MAGIC CUP BID. M/E - GOAL: PT WILL BE ABLE TO TOLERATE >50% OF MEALS AND AT LEAST TWO ORAL SUPPLEMENTS PER DAY IN 4-6 DAYS. PLAN: 1) PT MIGHT NOT BE A GOOD CANDIDATE FOR ENTERAL NUTRITION. IF DESIRED, PLEASE CONSULT.
--- NOTE | 2017-05-17 17:30 | NUR ---
Oriented to self. Pleasant and cooperative. Up w/SBA. Showered today w/ 1 assist. PIV to LFA s/l'd; flushes well. VSS, afebrile, on RA. Meds crushed in shake or cookie today. Bottom reddened but closed and blanches. Waiting on placement.
--- NOTE | 2017-05-18 04:32 | NUR ---
Oriented to self. VSS. RA. IV to L) forearm - saline locked. Took pills in strawberry milkshake. Daughter and here to visit. Incontinent with urine and stool. Repo with pillows frequently for reddened bottom. Slept well through night. Waiting for placement. Cooperative with cares.
--- NOTE | 2017-05-18 07:35 | NUR ---
Called [facility] and spoke to Mora. Asked if Vanda assessed patient yesterday? She wasn't sure but will get back to us. Gave her co-worker Deidra's call back [phone] as she will be following today.
--- NOTE | 2017-05-18 12:02 | NUR ---
1020 phone call placed to Zee Bell with [facility] at [phone], but went to her voicemail and the mailbox was full so unable to leave her a message. Called her again at 1130 and she states that she states she was not sure patient was ready for discharge and [facility] requires a bedside visit with patient before acceptance. Zee states she is going to call [facility] to see if they need the bedside visit or if they would be willing to accept patient without it. If they require the bedside to be done, Zee cannot come and do that until next Sunday. She said she may possibly be able to arrange her schedule and come on Sunday, but at this time it looks like Sunday would be the soonest. I asked her to call me or Patricia as soon as she knows if [facility] will accept without bedside visit.
--- NOTE | 2017-05-18 14:28 | NUR ---
Called back patients daughter/Guardian Nandini and updated her on where we are at with [facility] in [place].
--- NOTE | 2017-05-18 19:37 | NUR ---
Disoriented x3. Tolerating small amounts of regular soft diet well. Incontinent of bowel and bladder with brief on; Large BM today. PIV s/l'd to LFA. Crushed meds in Ensure of ice cream works best. Needs encouragement/assistance with meals. Waiting on placement.
--- NOTE | 2017-05-19 03:47 | NUR ---
Pt. oriented to self. VSS. RA. IV to L) Forearm - saline locked. Incontinent with urine and stool. Takes pills crushed in strawberry enurse/ice cream. Repo with pills as bottom is reddened slightly. Moisture barrier cream applied. Slept well through the night. Waiting for placement.
--- NOTE | 2017-05-19 17:39 | NUR ---
Significant event: Incontinent of urine and bowel. Combative at times, cooperative at times. Takes medicines crushed in food.
--- NOTE | 2017-05-20 04:09 | NUR ---
SIGNIFICANT EVENT: Pt sleepy this shift, wakes to voice - confused. 135 to 147 over 80 to 87, other VSS on RA. L) FA IV is SL. Crush meds in Chocolate ice cream or strawberry Ensure. Q2h turn. Only 1 Mod void this shift, 120 mL Ensure. Uncooperative at start of shift, more cooperative after HS seroquel. No BM this shift. 1 PA with gaitbelt.
--- NOTE | 2017-05-20 15:07 | NUR ---
Significant Event: pt confused. rested in the bed thi shift. inc of urine x 2. no bm this shift. takes meds with pudding. eats poorly with some setup. combative at times. unsure of discharge date. Follow up:
--- NOTE | 2017-05-21 02:48 | NUR ---
SIGNIFICANT EVENT: Pt confused d/t advanced dementia. VSS on RA. Incontinent of bowel/bladder - 1 mod inc vd so far this shift. Needs assistance with meals - Regular diet. 1PA gaitbelt to walk. PIV to L)FA. Awaiting placement. Cooperative with cares.
--- NOTE | 2017-05-21 10:40 | NUR ---
Donna with [facility] called with some questions about patient for [facility]. [facility] is full. Read thru care home and updated Donna. Faxed notes, MAR and progress notes to her at #[phone]. Called and left a message for Leida at [facility] - do they have beds in their unit? Faxed referral there. 1430 Called Donna. She has not heard anything from [facility] yet. She is aware patient will need a doctor from our first conversation today. She stated they can see if their medical billing instructor can take. Also left another message for Leida at [facility] inquiring if they have beds and did that get my referral?
--- NOTE | 2017-05-21 14:24 | NUR ---
A-NUTRITION F/U NO CBW, LABS. NO NEW MEDS WAITING FOR PLACEMENT RECEIVES SET UP ASSISTANCE AT MEALS. DIET RX: MECHANICAL SOFT W/STRAWB. ENSURE ENLIVE BID AND MAGIC CUP BID. PO INTAKE IS POOR; BITES-50% WITH AVG OF 21% SINCE LAST F/U. LIKES THE SUPPLEMENTS. EST NUTR NEEDS: [id number] KCALS AND 50-60 GM PROTEIN D-AT NUTRITION RISK W/INADEQUATE ORAL INTAKE R/T DECREASED APPETITE SECONDARY TO ALTERED MENTAL STATUS AEB INTAKE RECORDS, CHART REVIEW. I-1)CONTINUE W/CURRENT NUTRITION INTERVENTIONS 2)IF ENTERAL NUTRITION DESIRED, PLEASE CONSULT M/E-GOAL: PO INTAKE >/=50% BY DISCHARGE 1)F/U PO INTAKE, SUPPLEMENT, AND POC IN 4-6 DAYS 2)ASSIST NEEDED
--- NOTE | 2017-05-21 17:05 | NUR ---
Significant Event:Is awake & confused.No c/o pain.Not eating or drinking very well.Has been incont.of urine.No stools today.Up with 1-2 assists.Gets upset & hits at times.Waiting for placement. Follow up:
--- NOTE | 2017-05-22 02:19 | NUR ---
SIGNIFICANT EVENT: Pt confused. VSS on RA. 2PA for transfers, turns. Regular diet - not eating as well for the past 24 to 36 hrs. PIV R)FA - SL. Crush meds and put in chocolate ice cream or strawberry ensure. Cooperative with cares. Awaiting placement.
--- NOTE | 2017-05-22 09:55 | NUR ---
Contacted Naa at [facility] in [place]. They would be happy to look at the referral and could assess tomorrow. 1030 Faxed referral. 1125 Called Donna with [facility]. She stated [facility] assessed last night and should know something soon. Vanda should be coming today to assess for [place]. Around 1345 Jenny from [facility] stopped by to assess patient. Showed her to the room. 1630 Called [facility] to see if Jenny had told them anything about her assessment, they had not seen here and thought she left. 1515 Called [facility] and spoke to Kinga about referral. Went to fax it and Jenny was in Care Management office. They can take, today even. Called patients daughter Nandini. She was very hesitant about going to [facility] and wanted her sister to come talk to Jenny. Jenny meet with sister Charlene in the lobby. 1555 Alma Werner called to verify patient was going today? I said no I was still working on the details with family. 1630 Nandini left a message wanting a meeting with me and the doctor tomorrow regarding her mom's level of care. 1645 Called Jenny with [facility]. She knows they can take care of patient and tried to tell family this. I will let her know one way or another on placement. [address] Stiles. She can meet at 1300 tomorrow. Called Nandini, she will be here at 1300 and we will meet in the care management office.
--- NOTE | 2017-05-22 16:53 | NUR ---
Significant Event:Is confused.Has been pretty pleasant today.Up amb with 1 assist.SL in Lt.arm.Still not eating much but did better today than yesterday.Has been incont of urine.Waiting for placement. Follow up:
--- NOTE | 2017-05-23 03:45 | NUR ---
Pt. oriented to self. 1-2 assist. VSS. RA. IV in L) forearm - saline locked. Poor food/oral intake. Up in chair this shift. Slept well throughout the night. Incontinent. Pleasant with cares. Awaiting placement
--- NOTE | 2017-05-23 09:40 | NUR ---
Co-worker Deidra spoke to Donna with [facility]. Still hasn't heard from [facility] or [facility]. [id number] Meet with patients daughters - Nandini and Charlene. Doctor Linsey joined us at about 1315. We discussed the pros and cons to [facility] and [facility]. Families preference is to see if any senior living will accept. I have 4 referrals out there - [facility], [facility], [facility] and [facility]. They are fine with any of them. Will not totally count [facility] out because if we can't find placement at SNF may have to go that route. Nandini was going to try and call [facility], they had told me they had no beds last week. [facility] still have no beds this week. 1350 Spoke to Vanda with [facility]. She will come assess tomorrow at 1130 for [facility]. [facility] assesed and are declining due to concerns with behaviors. 1435 Called [facility] and asked for the DON. Spoke to Amy, she was not aware of a referral and to send it over. They would have to do some moving to make room for a female. 1610 Faxed referral. 1610 Called Jenny at [facility] #[phone] to update.
--- NOTE | 2017-05-23 13:56 | NUR ---
Patient had one episode of irritability this a.m. Did not hit but just swatted at the air near person. PURIFYING PLANT OPERATOR able to redirect patient and go for a walk pushing her baby doll and then patient went back to room and layed down in bed. Daughter to have conference with Dr. Stiles and care management this afternoon, but have not heard results yet. Plan: Continue to monitor.
--- NOTE | 2017-05-24 05:09 | NUR ---
Pt. alert to self. RA. VSS. IV in L) forearm - saline locked. Pills crushed. Poor oral and food intake. Incontinent. Still awaiting placement.
--- NOTE | 2017-05-24 11:42 | NUR ---
Significant Event: Oriented to self. Disoriented to time/place. Transfers with 1-2 assist and gait belt. Irritable at times. Able to calm down with extra time with cares. IV to L) wrist SL. Needs assistance with meals. Only eats bites. Last BM on 05/19. Given scheduled mirilax with PRN Senna. Had smears. Incontinent of Large urine this am. Denies pain. Medications given Crushed in Pud[place]. Follow up:
--- NOTE | 2017-05-24 12:15 | NUR ---
1215 Found out Amy from [facility] had left a message on care managements main number at 1649 on 05-23. Called her back and left a message to yes please come and assess patient today. 1230 Zee from [facility] here to assess patient. She will keep me posted with [facility]. 1238 Amy from [facility] left a message that they would come this afternoon. 1600 Spoke to Charlene, charge nurse. [facility] was here and spoke to Davi. 1620 Called Davi to see how conversation went. He was able to answer all their questions.
--- NOTE | 2017-05-24 16:47 | NUR ---
Significant Event: Pt remains confused but pleasant. Ambulated in the halls, set bed alarm off a few times. S[place]ot was given as no BM for several days Follow up: [facility] was here and assessed, may possibly take
--- NOTE | 2017-05-25 06:49 | NUR ---
SIGNIFICANT EVENT: Pt agitated and uncooperative this shift - pinching, hitting and cursing at staff. 4PA for bed change this a.m. - Inc void. No VS obtained this shift - attempted x4 but pt refused each time, hitting and cursing. Did not show any signs of distress or c/o pain. Slept well until this morning. PIV to L)FA.
--- NOTE | 2017-05-25 10:10 | NUR ---
Donna with [facility] called and [facility] will accept. I called [facility] and they will accept too. Both can take today. Called patients daughter Nandini. She will call me back, needs to make some calls. 1025 Updated [facility]ma [facility] that we had placement today. 1110 Called Nandini to see if they made a decision? [facility]. Let her know paperwork needs to be done this afternoon and they would be here at 1400. Gave her their number. 1155 Called Nandini. She had to leave a message for Angelic SALAZAR and Leida JETT but not heard back. I called and [facility] and got Leida asked her to called Nandini about paperwork because she can't come there this afternoon but could in the evening. 1235 Left a message for Nandini if she talked to Leida and the outcome? 1240 Left a message for Leida about the outcome? Nandini called back and we are a go at 1600 she will bring the admission paperwork in this evening. [address] Stiles. Called [facility]. 1255 Called [facility] to cancel their referrals. 1300 Nurse called and patient has no clothes. Called daughter Charlene, she will bring some in. Called charge Charlene. 1330 Faxed orders to [facility] and gave Agnieszka nurse call number. CARMEN placed in packet.
--- NOTE | 2017-05-25 10:46 | NUR ---
A - NUTRITION F/U. NO NEW LABS OR WT. PT AGITATED AND UNCOOPERATIVE. DIET MECH SOFT W/ ENSURE BID AND MAGIC CUP BID. ASSISTED W/ MEALS. INTAKE 0-25%. AWAITING PLACEMENT. NOT APPROPRIATE FOR DOBHOFF. D - AT RISK W/ INADEQUATE ORAL INTAKE R/T ALTERED MENTAL STATUS, DECREASED APPETITE AEB INTAKE RECORD. I - GOAL: 25% OR BETTER INTAKE BY NEXT REVIEW. M/E - CONT TO ENCOURAGE ORAL INTAKE. F/U IN 3-5 DAYS.
--- NOTE | 2017-05-25 13:35 | NUR ---
D: Pt 1-2 assist with ambulation. Inc urine and bm. Dulcolox suppository and MOM given at 1130, had a large bm. Poor appetite. Confused. Pt has had a good week but today has been more irritable with staff d/t need for suppository and has been trying to hit at staff. Calms down when you leave her alone or give her sweets. VS stable. Will dc to fdc at 1400.
== END 2017-05-25 15:05 | DRG 564 ==
LOC: GACC 09:14 → GMSU 11:47
PROVIDERS: Family Medicine; Internal Medicine; Physician Assistant; ADMIT Internal Medicine
DX: T79.6XXA Traumatic ischemia of muscle, initial encounter (principal); G93.40 Encephalopathy, unspecified; F03.91 Unspecified dementia, unspecified severity, with behavioral disturbance; N39.0 Urinary tract infection, site not specified; E44.1 Mild protein-calorie malnutrition; R29.6 Repeated falls; Z91.81 History of falling; Z66 Do not resuscitate; Z79.899 Other long term (current) drug therapy; I51.7 Cardiomegaly; M19.90 Unspecified osteoarthritis, unspecified site; F32.9 Major depressive disorder, single episode, unspecified; L53.9 Erythematous condition, unspecified; S00.81XA Abrasion of other part of head, initial encounter
CPT/HCPCS: J1630; J2060; J7030

== ENCOUNTER → 2017-05-06 | Outpatient (CLI) | payer MEDICARE, OTHER ==
[~2017-05-06] MED LIST: ALOE VESTA TOP; ALOE VESTA141 GM TOP; ATIVAN 0.5MG0.5 MG PO; DULCOLAX10 MG R; MAALOX LIQ UNIT30 ML PO; MILK OF MA400 MG/5 M PO; NEURONTIN100 MG PO; SENOKOT8.6 MG PO; SEROQUEL25 MG PO; TYLENOL325 MG PO; ZYPREXA2.5 MG PO
== END | disposition disaster alternative care site (69) ==
LOC: GAMB 08:56
DX: M79.601 Pain in right arm (principal); S00.11XA Contusion of right eyelid and periocular area, initial encounter; S40.811A Abrasion of right upper arm, initial encounter; S00.81XA Abrasion of other part of head, initial encounter; G30.9 Alzheimer's disease, unspecified; F02.80 Dementia in other diseases classified elsewhere, unspecified severity, without behavioral disturbance, psychotic disturbance, mood disturbance, and anxiety; Z79.899 Other long term (current) drug therapy; Z88.0 Allergy status to penicillin; Z88.8 Allergy status to other drugs, medicaments and biological substances; W01.0XXA Fall on same level from slipping, tripping and stumbling without subsequent striking against object, initial encounter